=== PATIENT | male | born 1980 | race Hispanic/Latino ===

== ENCOUNTER 2024-04-26 15:51 | Emergency (ER) | payer SELFPAY ==
[2024-04-26 15:56] VITALS: BP 112/77
[2024-04-26 16:25] LABS: Hematocrit 40.3 % (39.0-52.0); Hemoglobin 13.7 g/dL (13.0-18.0); Mean Corpuscular Hgb 30.2 pg (27.0-31.0); Mean Platelet Volume 10.1 fL (7.4-10.4); Platelet Count 388 10^3/uL (130-400); Red Blood Cell Count 4.53 10^6/uL (4.70-6.10); Red Cell Dist. Width 12.3 % (11.5-14.5); White Blood Cell Count 9.4 10^3/uL (4.8-10.8)
[2024-04-26 16:30] LABS: ALT (SGPT) 47 U/L (0-50); AST (SGOT) 34 U/L (17-59); Albumin 4.5 g/dl (3.5-5.0); Alkaline Phosphatase 107 U/L (38-126); Blood Urea Nitrogen 15 mg/dl (9-20); Calcium 8.8 mg/dl (8.4-10.2); Carbon Dioxide 27 mmol/L (22-30); Chloride 99 mmol/L (98-107); Glucose 122 mg/dl (70-99); Potassium 4.4 mmol/L (3.5-5.1); Sodium 136 mmol/L (135-145); Total Bilirubin 1.4 mg/dl (0.2-1.3); eGFR > 60.00
[2024-04-26 17:10] LABS: % Basophils 0.5 % (0-2); % Immature Granulocytes 0.5 % (0-0.5); % Lymphocytes 17.5 % (20.5-51.1); % Monocytes 7.1 % (1.7-9.3); % Neutrophils 73.4 % (42.2-75.2); Absolute Basophils 0.1 10^3/uL (0-0.2); Absolute Eosinophils 0.1 10^3/uL (0-0.7); Absolute Immature Granulocytes 0.1 10^3/uL (0-0.05); Absolute Lymphocytes 1.7 10^3/uL (1.2-3.4); Absolute Monocytes 0.7 10^3/uL (0.1-0.6); Absolute Neutrophils 6.9 10^3/uL (1.4-6.5); Nucleated Red Blood Cells % 0 % (-)
--- NOTE | 2024-04-26 18:18 | ED.GENMED ---
History of Present Illness
<LIZZ Guajardo - Last Filed: 04/26/24 19:55>
General
Chief Complaint: Cold/Flu/URI Symptoms
Source: patient
Exam Limitations: none
Time Seen by Provider: 04/26/24 18:09
History of Present Illness
History of Present Illness:
This is a 43 year old male that comes in with c/o being sick for 2 weeks. States that he has had a cough and he coughs so hard that this causes him to vomit. States that he went to last week and was given Tamiflu but this did not help. States
that he had a fever at the beginning and he has been using Night Quil. States that he has chest discomfort with coughing. SOB, nausea, vomiting with cough, and headache. Denies any fever, chills, diarrhea, dizziness, urinary burning
Past History
<LIZZ Guajardo - Last Filed: 04/26/24 19:55>
Past History
ED Past Medical History: None; Negative Asthma, HTN, Hypercholesterolemia or NIDDM
ED Past Surgical History: None
Social History
Tobacco: Former smoker
Alcohol: Occasional
Personal:
Living: with family
Review of Systems
<LIZZ Guajardo - Last Filed: 04/26/24 19:55>
Review of Systems
All Other Systems: ROS reviewed and negative except as documented in HPI and ROS
Constitutional: Reports no symptoms; Denies fever or chills
EENT: Reports no symptoms
Respiratory: Reports cough and trouble breathing
Cardiac: Reports chest pain (with cough)
ABD/GI: Reports nausea and vomiting (with cough); Denies abdominal pain or diarrhea
: Reports no symptoms; Denies dysuria, frequency or urgency
Musculoskeletal: Reports no symptoms
Skin: Reports no symptoms
Neurological: Reports headache; Denies dizzy
Psychiatric: Reports no symptoms
Phy Exam
<LIZZ Guajardo - Last Filed: 04/26/24 19:55>
General Physical Exam
General Presentation: well appearing and no apparent distress
General age: appears stated age
General Skin: warm and dry
General Habitus: normal
General Mental: alert
General Hydration: appears well hydrated
ENT Exam
ENT Exam: TM's normal, pharynx normal and neck supple
Eye Exam
Eye Exam: EOMI
Cardiovascular Exam
Cardiovascular Exam: regular rate/rhythm, no edema, no murmur and normal peripheral pulses
Pulmonary Exam
Pulmonary Exam: no respiratory distress, chest non tender, no rhonchi and other (Decreased breath sounds right base and fine crackles bilaterally. Exp wheezing noted more on the left, Dry cough noted)
Gastrointestinal Exam
Gastrointestinal Exam: normal bowel sounds, non tender, soft, no organomegaly, no pulsatile mass and non distended
Musculoskeletal Exam
Musculoskeletal Exam: full ROM and no edema
Skin Exam
Skin Exam: normal color, warm/dry, no rash and no petechia
Psychiatric Exam
Psychiatric Exam: normal mood/affect
Course
<LIZZ Guajardo - Last Filed: 04/26/24 19:55>
Orders/Labs/Results
Orders:
Orders
04/26/24 16:01
CR Chest - 2 Views Urgent
Comment:
Reason For Exam: cough
04/26/24 16:04
Complete Blood Count/With Diff Urgent
Comprehensive Metabolic Panel Urgent
04/26/24 18:17
Doxycycline [Vibramycin] 100 mg PO NOW STA
Ipratropium/Albuterol Sulfate [Duoneb] 3 ml INH R NOW ONE
04/26/24 18:24
Dexamethasone Pf [Decadron] 20 mg PO NOW STA
Abnormal Lab Results
04/26/24
16:04
RBC 4.53 L 10^6/uL
(4.70-6.10)
Abs Immat Gran (auto) 0.1 H 10^3/uL
(0-0.05)
Absolute Neuts (auto) 6.9 H 10^3/uL
(1.4-6.5)
Absolute Monos (auto) 0.7 H 10^3/uL
(0.1-0.6)
Lymphocytes % 17.5 L %
(20.5-51.1)
Glucose 122 H mg/dl
(70-99)
Total Bilirubin 1.4 H mg/dl
(0.2-1.3)
04/26/24 16:04
04/26/24 16:04
Glucose nonfasting Total sage very slightly elevated.
Vital Signs
Initial and Last Documented VS:
Initial Vital Signs
Temp Pulse Resp BP Pulse Ox
98.1 F 94 20 112/77 94
04/26/24 15:56 04/26/24 15:56 04/26/24 15:56 04/26/24 15:56 04/26/24 15:56
Last Documented Vital Signs
Temp Pulse Resp BP Pulse Ox
98.1 F 94 20 112/77 94
04/26/24 15:56 04/26/24 15:56 04/26/24 15:56 04/26/24 15:56 04/26/24 15:56
<Milton Wild, DO - Last Filed: 04/26/24 19:59>
Orders/Labs/Results
Orders:
Orders
04/26/24 16:01
CR Chest - 2 Views Urgent
Comment:
Reason For Exam: cough
04/26/24 16:04
Complete Blood Count/With Diff Urgent
Comprehensive Metabolic Panel Urgent
04/26/24 18:17
Doxycycline [Vibramycin] 100 mg PO NOW STA
Ipratropium/Albuterol Sulfate [Duoneb] 3 ml INH R NOW ONE
04/26/24 18:24
Dexamethasone Pf [Decadron] 20 mg PO NOW STA
Abnormal Lab Results
04/26/24
16:04
RBC 4.53 L 10^6/uL
(4.70-6.10)
Abs Immat Gran (auto) 0.1 H 10^3/uL
(0-0.05)
Absolute Neuts (auto) 6.9 H 10^3/uL
(1.4-6.5)
Absolute Monos (auto) 0.7 H 10^3/uL
(0.1-0.6)
Lymphocytes % 17.5 L %
(20.5-51.1)
Glucose 122 H mg/dl
(70-99)
Total Bilirubin 1.4 H mg/dl
(0.2-1.3)
04/26/24 16:04
04/26/24 16:04
Vital Signs
Initial and Last Documented VS:
Initial Vital Signs
Temp Pulse Resp BP Pulse Ox
98.1 F 94 20 112/77 94
04/26/24 15:56 04/26/24 15:56 04/26/24 15:56 04/26/24 15:56 04/26/24 15:56
Last Documented Vital Signs
Temp Pulse Resp BP Pulse Ox
98.1 F 94 20 112/77 94
04/26/24 15:56 04/26/24 15:56 04/26/24 15:56 04/26/24 15:56 04/26/24 15:56
<LIZZ Guajardo - Last Filed: 04/26/24 19:55>
MDM/Problems Addressed
Differential Diagnosis Includes:
PNA
MDM/Problems Addressed:
This is a 43 year old male that comes in with c/o feeling sick for 2 weeks. Patient was seen at last Monday and given Tamiflu. States that he is not better. Patient coughs so hard that this causes him to vomit.
Will check labs and get chest x-ray. Will also give a Duo neb and steroids
Explained to patient that he has a right lower lobe Pneumonia. Will place on Antibiotics and give a Duo neb for the wheezing. Will also give Oral steroids to decrease Wheezing.
Back into see patient. Patient states that he is feeling better. Will discharge patient home. Patient told that if he has increased SOB or just feels worse to return to the emergency room.
Chronic conditions affecting care:
NA
Acute Exacerbation and/or Progression of Chronic Illness:
NA
<LIZZ Guajardo - Last Filed: 04/26/24 19:55>
*Radiology
Radiology exam reviewed: preliminary read by ED provider (Chest- Right lower lobe Pneumonia) and radiology read reviewed (Bilateral lower lung Pneumonia, in this patient with history of influenza. No evidence for associated pleural effusion. )
*Pulse Oximetry
Patient hypoxic: no
*EKG
Interpreted by ED Provider?: NA
Rate: EKG- N/A
*Drywall Foreman Interpretation
Rate: Drywall Foreman- N/A
*Critical Care Note
Total Time (30-74mins, 75-104mins- exclusive of procedures): Not Applicable
ED Attending Note
<LIZZ Guajardo - Last Filed: 04/26/24 19:55>
-
Portions of this chart may have been created with voice recognition software.� Occasional wrong word or��sound alike� substitutions may have occurred due to the inherent limitations of voice recognition software.
<Milton Wild DO - Last Filed: 04/26/24 19:59>
ED Attending Note
Patient seen and examined by attending physician: Yes
I performed the substantive portion of visit, reviewed & personally made and approve the management plan that is documented in note by myself or ANDREW.: Yes
ED Attending Note:
Seen with CREW SUPERVISOR examined independently 43-year-old male no medical history sick for a week or 2 cough congestion crackles at the right base x-ray noted will start on antibiotics
Discharge Plan
Departure
Patient Disposition: Home (Routine Discharge)
Date of Disposition: 04/26/24
Time of Disposition: 19:48
Patient with high blood pressure during this ER visit?: No
Condition: Good
Covid-19: Not Applicable
Discharge Problem:
Pneumonia of both lower lobes
Instructions: Pneumonia in adults - Discharge instructions
Prescriptions:
New
doxycycline hyclate 100 mg capsule
100 mg PO BID Qty: 20 0RF
prednisone 20 mg tablet
20 mg PO DAILY Qty: 3 0RF
Referrals:
NONE,* [Family Provider] -
Activity Restrictions/Additional Instructions:
As discussed, you have bilateral lower lobe Pneumonia. You have been given your first dose of antibiotic here and a steroid. You have had 2 prescriptions sent to your pharmacy. The first is for the antibiotic. Please take as directed until
finished. The second is a steroid that will help decrease the inflammation and cough. Please follow up in the Clinic for recheck. Please increase your water intake to 8-8oz glasses daily. Use Tylenol or Ibuprofen as needed for any fever or body
aches. IF YOU HAVE INCREASED OR CHANGING SHORTNESS OF BREATH, OR YOU HAVE ANY OTHER CONCERNS PLEASE RETURN TO THE EMERGENCY ROOM.
Interventions
Interventions:
*Risk Screen - Suicide Last Done: 04/26/24 15:56
*General Assessment Last Done: 04/26/24 15:56
*Neglect/Abuse Screening Last Done: 04/26/24 15:56
Discharge Date and Time
Print Language: BULGARIAN
[2024-04-26] MEDS: DECADRON 20 MG PO (18:56)
[2024-04-26] MEDS: VIBRAMYCIN 100 MG PO (18:56)
[2024-04-26] MEDS: DUONEB 3 ML INH (18:56)
== END 2024-04-26 20:00 | disposition home or self-care (01) ==
LOC: EMR 15:51
PROVIDERS: Emergency Medicine; EMERGENCY PHYSICIAN Emergency Medicine
DX: J18.9 Pneumonia, unspecified organism (principal); Z87.891 Personal history of nicotine dependence
CPT/HCPCS: 99284; 94640; 71046; 80053; 85025